=== PATIENT | female | born 1980 | race Caucasian/White ===

== ENCOUNTER → 2016-04-01 | Outpatient (CLI) | payer BC ==
[~2016-04-01] MED LIST: CITA40TA12 PO; FLX10 PO; NPR250 PO; PRENTAB26 PO; RXC5 PO
== END | disposition home or self-care (01) ==
LOC: C.LAB1850 07:46
PROVIDERS: ATTEND Specialist
DX: Z31.41 Encounter for fertility testing (principal)

== ENCOUNTER → 2016-04-07 | Outpatient (CLI) | payer BC | END | disposition home or self-care (01) | LOC: C.LAB1850 08:24 | PROVIDERS: ATTEND Specialist | DX: Z31.41 Encounter for fertility testing (principal) ==

== ENCOUNTER → 2016-04-09 | Outpatient (CLI) | payer BC | END | disposition home or self-care (01) | LOC: C.LAB1850 07:39 | PROVIDERS: ATTEND Specialist | DX: Z31.41 Encounter for fertility testing (principal) ==

== ENCOUNTER → 2016-04-30 | Outpatient (CLI) | payer BC | END | disposition home or self-care (01) | LOC: C.LAB1850 07:01 | PROVIDERS: ATTEND Specialist | DX: Z32.00 Encounter for pregnancy test, result unknown (principal) ==

== ENCOUNTER → 2016-05-03 | Outpatient (CLI) | payer BC | END | disposition home or self-care (01) | LOC: C.LAB1850 07:21 | PROVIDERS: ATTEND Specialist | DX: Z32.00 Encounter for pregnancy test, result unknown (principal) ==

== ENCOUNTER → 2016-05-05 | Outpatient (CLI) | payer BC | END | disposition home or self-care (01) | LOC: C.LAB1850 07:02 | PROVIDERS: ATTEND Specialist | DX: Z32.00 Encounter for pregnancy test, result unknown (principal) ==

== ENCOUNTER → 2016-06-07 | Outpatient (CLI) | payer BC ==
[2016-06-07 18:39] LABS: URINE APPEARANCE CLEAR (CLEAR); URINE BILIRUBIN NEG (NEG); URINE COLOR YELLOW; URINE NITRITE NEG (NEG); URINE PH 7.5 (4.5-7.5); URINE SPECIFIC GRAVITY 1.013 (1.000-1.030); UROBILINOGEN NEG (NEG)
[2016-06-07 18:49] LABS: MANUAL MICROSCOPIC REQUIRED? NO; REVIEW REQ? NO
== END | disposition home or self-care (01) ==
LOC: C.LABSPEC 17:54
PROVIDERS: ATTEND Obstetrics & Gynecology
DX: O09.519 Supervision of elderly primigravida, unspecified trimester (principal); Z3A.00 Weeks of gestation of pregnancy not specified

== ENCOUNTER → 2016-06-10 | Outpatient (CLI) | payer BC ==
[2016-06-10 18:01] LABS: BASO % 0.3 %; BASO ABS # 0.03 K/uL (0-0.2); COMPLETE YES; HEMATOCRIT 35.4 % (37-47); IG% 0.2 %; LYMPH % 25.6 %; LYMPH ABS # 2.45 K/uL (1.2-3.4); MEAN CELL VOLUME 86.6 fL (80-100); MEAN CORPUSCULAR HEMOGLOBIN 31.3 pg (25-34); MEAN CORPUSCULAR HGB CONC 36.2 g/dl (32-36); MONO % 6.1 %; NEUT % 65.8 %; PLATELET COUNT 231 K/uL (130-400); RED BLOOD COUNT 4.09 M/uL (4.2-5.4); WHITE BLOOD COUNT 9.56 K/uL (4.8-10.8)
== END ==
LOC: C.LAB1850 16:26
PROVIDERS: ATTEND Obstetrics & Gynecology
DX: O09.519 Supervision of elderly primigravida, unspecified trimester (principal); Z3A.00 Weeks of gestation of pregnancy not specified

== ENCOUNTER → 2016-06-10 | Outpatient (CLI) | payer BC ==
[2016-06-14 23:54] LABS: CHLAMYDIA TRACH RNA*** NOT DETECTED (NOT DETECTED); GC (NEIS GONORRHOEAE)RNA** NOT DETECTED (NOT DETECTED)
== END ==
LOC: C.LABSPEC 17:40
PROVIDERS: ATTEND Obstetrics & Gynecology
DX: O09.519 Supervision of elderly primigravida, unspecified trimester (principal); Z3A.00 Weeks of gestation of pregnancy not specified

== ENCOUNTER → 2016-07-21 | Outpatient (CLI) | payer BC ==
[2016-07-21 13:31] LABS: GTGD 50 Grams
== END | disposition home or self-care (01) ==
LOC: C.LAB1850 12:03
PROVIDERS: ATTEND Obstetrics & Gynecology
DX: O09.512 Supervision of elderly primigravida, second trimester (principal)

== ENCOUNTER → 2016-10-12 | Outpatient (CLI) | payer BC ==
[2016-10-12 17:20] LABS: HEMATOCRIT 36.8 % (37-47)
[2016-10-12 17:30] LABS: URINE APPEARANCE CLEAR (CLEAR); URINE BILIRUBIN NEG (NEG); URINE COLOR YELLOW; URINE NITRITE NEG (NEG); URINE PH 5.5 (4.5-7.5); URINE SPECIFIC GRAVITY 1.013 (1.000-1.030); UROBILINOGEN NEG (NEG)
[2016-10-12 17:50] LABS: MANUAL MICROSCOPIC REQUIRED? NO; REVIEW REQ? NO
[2016-10-12 18:20] LABS: GTGD 50 Grams
== END | disposition home or self-care (01) ==
LOC: C.LAB1850 16:18
PROVIDERS: ATTEND Obstetrics & Gynecology
DX: O09.513 Supervision of elderly primigravida, third trimester (principal); Z3A.00 Weeks of gestation of pregnancy not specified

== ENCOUNTER 2016-10-27 17:28 | Outpatient (CLI) | payer BC ==
[~2016-10-27] VITALS: Ht 175.3 cm; Wt 93.0 kg
[~2016-10-27 17:28] MED LIST changes: -PRENTAB26 PO
[2016-10-27 18:39] VITALS: Ht 175.3 cm; Wt 93.0 kg
[2016-10-27] MEDS ORDERED: PRENTAB26 PO (18:47)
== END 2016-10-27 18:17 | disposition home or self-care (01) ==
LOC: C.OPB 17:28 → C.LD 17:29 → C.OPB 18:17
PROVIDERS: ATTEND Obstetrics & Gynecology
DX: O36.8190 Decreased fetal movements, unspecified trimester, not applicable or unspecified (principal); Z3A.00 Weeks of gestation of pregnancy not specified

== ENCOUNTER 2016-10-31 03:36 | Outpatient (CLI) | payer BC ==
[~2016-10-31 03:36] MED LIST changes: -CITA40TA12 PO; -FLX10 PO; -NPR250 PO; +PRENTAB26 PO; -RXC5 PO
[2016-10-31 04:14] LABS: MANUAL MICROSCOPIC REQUIRED? NO; REVIEW REQ? NO; URINE APPEARANCE CLEAR (CLEAR); URINE BILIRUBIN NEG (NEG); URINE COLOR YELLOW; URINE NITRITE NEG (NEG); URINE SPECIFIC GRAVITY 1.008 (1.000-1.030); UROBILINOGEN NEG (NEG)
[2016-10-31 04:14] LABS: BASO % 0.2 %; BASO ABS # 0.02 K/uL (0-0.2); EOS % 1.8 %; HEMATOCRIT 35.4 % (37-47); IG% 0.4 %; LYMPH % 22.9 %; LYMPH ABS # 2.47 K/uL (1.2-3.4); MEAN CELL VOLUME 91.7 fL (80-100); MEAN CORPUSCULAR HEMOGLOBIN 32.6 pg (25-34); MEAN PLATELET VOLUME 10.3 fL (7.4-10.4); MONO % 5.8 %; NEUT % 68.9 %; PLATELET COUNT 130 K/uL (130-400); RED BLOOD COUNT 3.86 M/uL (4.2-5.4); WHITE BLOOD COUNT 10.79 K/uL (4.8-10.8)
[2016-10-31 04:17] LABS: COMPLETE YES; MEAN CORPUSCULAR HGB CONC 35.6 g/dl (32-36)
== END 2016-10-31 04:17 | disposition other institution (70) ==
LOC: C.OPB 03:36 → C.LD 03:41 → C.OPB 04:17
PROVIDERS: ATTEND Obstetrics & Gynecology
DX: O26.899 Other specified pregnancy related conditions, unspecified trimester (principal); R10.9 Unspecified abdominal pain; Z3A.00 Weeks of gestation of pregnancy not specified

== ENCOUNTER 2016-10-31 04:21 | Emergency (ER) | payer BC ==
[~2016-10-31] VITALS: Ht 175.3 cm; Wt 93.0 kg
[2016-10-31 04:23] VITALS: TEMP 36.6; Ht 175.3 cm; Wt 93.0 kg
[2016-10-31] MEDS ORDERED: MoRPHine SULFATE 4 MG/ML 1 ML CARP\\VIAL IV STA (04:40)
[2016-10-31] MEDS ORDERED: ONDANSETRON INJ 2 MG/ML 2 ML VIAL IV STA (04:40)
--- NOTE | 2016-10-31 06:38 | DIAGNOSTIC IMAGING REPORT ---
LIMITED (US) CLINICAL HISTORY: eval for abruption - left sided pain COMPARISON STUDY: No previous studies for comparison. TECHNIQUE: Transabdominal sonography of the pelvis was performed. FINDINGS: Single viable intrauterine gestation is noted. heart rate is normal at 132 bpm. Presentation is cephalic. Placenta is located posteriorly. There is no placental abnormality by sonography. Amniotic fluid index is normal at 15.9 cm. The cervix was not formally assessed on this exam. IMPRESSION: 1. Single viable intrauterine gestation with normal heart rate of 132 bpm. 2. No placental abnormality identified by sonography. Posteriorly located placenta. 3. Cephalic presentation. 4. Amniotic fluid index of 15.9 cm. Electronically signed by: Saad Montilla M.D. 10/31/2016 6:37 AM Dictated Date/Time: 10/31/2016 6:35 AM
--- NOTE | 2016-10-31 06:41 | DIAGNOSTIC IMAGING REPORT ---
RENAL ULTRASOUND CLINICAL HISTORY: Flank pain. . COMPARISON STUDY: None. TECHNIQUE: Sonography of the kidneys and the urinary bladder was performed. FINDINGS: The right kidney measures 10.9 x 5.5 x 5.8 cm and the left measures 11.2 x 5.6 x 5.5 cm. There is mild bilateral hydronephrosis, right greater than left. No renal calculi or masses are identified. Both ureteral jets are identified. Incidental note is made of mild splenomegaly. The spleen measures 13.5 cm. IMPRESSION: 1. Mild bilateral hydronephrosis, right greater than left. This may be due to a gravid uterus. Both ureteral jets identified. 2. Mild splenomegaly. Electronically signed by: Saad Montilla M.D. 10/31/2016 6:40 AM Dictated Date/Time: 10/31/2016 6:37 AM
--- NOTE | 2016-10-31 06:53 | EMERGENCY ROOM VISIT NOTE ---
History Report prepared by Berny: Bassam Ornelas Under the Supervision of: Dr. Allie Harris D.O. First contact with patient: 04:29 Chief Complaint: FLANK PAIN Stated Complaint: KIDNEY STONE,LEFT SIDE PAIN FROM L&D History of Present Illness The patient is a 36 year old female who presents to the Emergency Room with complaints of constant left flank pain beginning today. She is 30 weeks with her first . She presented to the ED today for her symptoms, and was taken to labor and delivery where it was confirmed that she was not in labor or having contractions. The patient had a urinalysis while in labor and delivery that showed blood present. She has no known personal or family history of kidney stones. She denies any new abdominal pain. The patient states that she has been able to feel the baby moving. Source of History: patient Onset: Today Position: other (left flank) Timing: constant Associated Symptoms: No abdominal pain (new) Review of Systems See HPI for pertinent positives & negatives. A total of 10 systems reviewed and were otherwise negative. Past Medical & Surgical Medical Problems: (1) 29 weeks gestation of (2) Decreased movement affecting management of in third trimester (3) Other specified complication, antepartum (4) Pain in scapula Family History No pertinent family history stated. Social History Smoking Status: Former Smoker Marital Status: Housing Status: lives with family Current/Historical Medications Scheduled Multivit/Min/Iron/Fol Ac/Pren ( Vitamin), 1 TAB PO DAILY Allergies Coded Allergies: No Known Allergies (Unverified , 10/27/16) Physical Exam Vital Signs Date Time Temp Pulse Resp B/P (MAP) Pulse Ox O2 Delivery O2 Flow Rate FiO2 10/31/16 06:58 78 18 111/65 98 10/31/16 05:48 63 20 92/41 97 Room Air 10/31/16 04:23 36.6 68 22 108/69 96 Room Air Physical Exam General: Appears very uncomfortable. Tachypneic on exam. HEENT: Head - normocephalic and atraumatic Pupils are equal, round, and reactive to light. Extraocular eye muscles are intact, and sclera are anicteric. Nose - moist nasal mucosa without discharge. Mouth - moist buccal mucosa. Oropharynx is nonerythematous and there is no tonsillar exudate or edema noted. Neck: Supple; no JVD, nuchal rigidity, cervical lymphadenopathy. Heart: Regular rate and rhythm. There is a normal S1 and S2 with no murmurs, clicks, or gallops appreciated. Lungs: Clear to auscultation bilaterally with no wheezes, rales, or rhonchi. Abdomen: Gravid. Fundus of the uterus above the umbilicus. Exquisite tenderness to palpation over the left side of the abdomen. There are no palpable pulsatile masses or hepatosplenomegaly. Extremities: No evidence of cyanosis, clubbing, or edema. There are easily palpable peripheral pulses. Skin: warm and dry with good turgor and no rashes. Medical Decision & Procedures ER Provider Diagnostic Interpretation: US results as stated below per my review and the radiologist's interpretation: LIMITED (US) FINDINGS: Single viable intrauterine gestation is noted. heart rate is normal at 132 bpm. Presentation is cephalic. Placenta is located posteriorly. There is no placental abnormality by sonography. Amniotic fluid index is normal at 15.9 cm. The cervix was not formally assessed on this exam. IMPRESSION: 1. Single viable intrauterine gestation with normal heart rate of 132 bpm. 2. No placental abnormality identified by sonography. Posteriorly located placenta. 3. Cephalic presentation. 4. Amniotic fluid index of 15.9 cm. Electronically signed by: Saad Montilla M.D. US RENAL results per [facility] and my review. US RENAL: Mild bilateral hydronephrosis which may be secondary to gravid uterus. No renal masses or calculi. Bilateral ureteral jet were visualized. The spleen is mildly enlarged measuring 13.5 cm. Medications Administered Medications (Trade) Dose Ordered Sig/Cary Route Start Time Stop Time Status Last Admin Dose Admin Morphine Sulfate (MoRPHine SULFATE INJ) 4 mg NOW STAT IV 10/31/16 04:40 10/31/16 04:41 DC 10/31/16 04:46 4 MG Ondansetron HCl (Zofran Inj) 4 mg NOW STAT IV 10/31/16 04:40 10/31/16 04:41 DC 10/31/16 04:45 4 MG Procedure Medications ordered: Morphine IV, Zofran IV. ED Course 0431: Past medical records reviewed. The patient was evaluated in room A11B. A complete history and physical exam was performed. An IV lock was initiated. The laboratory studies that were obtained while in labor and delivery were reviewed. 0440: Ordered Zofran Inj 4 mg IV, Morphine Sulfate 4 mg IV. She went for renal ultrasound and ultrasound. 0650: Upon reevaluation, the patient is resting comfortably. I discussed findings and results with her. She verbalized agreement of the treatment plan. The patient was discharged home. Medical Decision The patient is a 36 year old female who presents to the ED from labor & delivery with left flank pain. Differential diagnosis includes ureteral colic, pyelonephritis, placental abruption, and pre-term labor. Laboratory Studies: White blood cell count 10.7. Hemoglobin 12.6. Platelet count 130. Urine had trace blood with 5-10 red blood cells. This is a 36-year-old female patient who is 30 weeks and presenting with left flank pain. The patient was monitored on labor and delivery with no obvious signs of contractions. Urinalysis did reveal some hematuria and there was some concern that her left flank pain was secondary to a ureteral stone. Ultrasound shows hydronephrosis which is equal bilaterally and most likely secondary to the gravid uterus. No obvious stone could be identified. ultrasound was unremarkable. The patient was more comfortable after receiving the above IV medications. However, was concerned about the amount of pain the patient had experienced prior to this. I discussed the case with Dr. Barajas and we've agreed to send the patient home. If the pain would return, she should follow-up with him by phone or return here to the emergency department immediately. She is to avoid strenuous activity and keep herself well-hydrated. Consults Time Called: 0640 Consulting Physician: Dr. Karl MORRIS Returned Call: [phone] Discussed the patient's case. Dr. Barajas feels that the patient is safe for discharge, and he will see her in labor and delivery if her pain returns. Impression Primary Impression: Left flank pain Additional Impression: Third trimester Scribe Attestation The scribe's documentation has been prepared under my direction and personally reviewed by me in its entirety. I confirm that the note above accurately reflects all work, treatment, procedures, and medical decision making performed by me. Departure Information Dispostion Home / Self-Care Referrals Terri Oseguera PA-C (PCP) Forms HOME CARE DOCUMENTATION FORM, IMPORTANT VISIT INFORMATION Patient Instructions ED Flank Pain Uncertain Cause, My [facility] Additional Instructions Rest Keep yourself well-hydrated. Return to the ER or call OB if pain returns Problem Qualifiers
[2016-10-31 06:58] VITALS: BP 111/65; PULSE 78; O2SAT 98
== END 2016-10-31 06:59 | disposition home or self-care (01) ==
LOC: C.EDB 04:22 → C.EDA 06:59
DX: O99.89 Other specified diseases and conditions complicating pregnancy, childbirth and the puerperium (principal); R10.30 Lower abdominal pain, unspecified; Z3A.30 30 weeks gestation of pregnancy; Z87.891 Personal history of nicotine dependence

== ENCOUNTER → 2016-12-15 | Outpatient (CLI) | payer BC | END | disposition home or self-care (01) | LOC: C.LABSPEC 17:28 | PROVIDERS: ATTEND Obstetrics & Gynecology | DX: O09.513 Supervision of elderly primigravida, third trimester (principal); Z3A.00 Weeks of gestation of pregnancy not specified ==

== ENCOUNTER 2017-03-19 20:02 | Emergency (ER) | payer BC, OTHER ==
[~2017-03-19] VITALS: Ht 175.3 cm; Wt 81.8 kg
[2017-03-19 20:05] VITALS: TEMP 37.1; Ht 175.3 cm; Wt 81.8 kg
[2017-03-19] MEDS ORDERED: SODIUM CHLORIDE 0.9% 1000ML 1,000 ML IV STA (20:39)
[2017-03-19] MEDS ORDERED: ONDANSETRON INJ 2 MG/ML 2 ML VIAL IV STA (20:39)
[2017-03-19] MEDS ORDERED: KETOROLAC TROMETHAMINE 30 MG/ML VIAL IV STA (20:39)
[2017-03-19 21:01] LABS: BASO % 0.3 %; BASO ABS # 0.02 K/uL (0-0.2); EOS % 0.8 %; EOS ABS # 0.06 K/uL (0-0.5); HEMATOCRIT 40.9 % (37-47); HEMOGLOBIN 14.7 g/dL (12.0-16.0); IG# 0.01 K/uL (0.00-0.02); LYMPH % 12.9 %; LYMPH ABS # 1.03 K/uL (1.2-3.4); MEAN CELL VOLUME 89.1 fL (80-100); MEAN CORPUSCULAR HGB CONC 35.9 g/dl (32-36); MEAN PLATELET VOLUME 11.5 fL (7.4-10.4); MONO ABS # 0.48 K/uL (0.11-0.59); NEUT % 79.9 %; NEUT ABS # 6.37 K/uL (1.4-6.5); PLATELET COUNT 133 K/uL (130-400); RED CELL DISTRIBUTION WIDTH CV 12.9 % (11.5-14.5); RED CELL DISTRIBUTION WIDTH SD 41.5 fL (36.4-46.3); WHITE BLOOD COUNT 7.97 K/uL (4.8-10.8)
[2017-03-19 21:18] LABS: ALBUMIN 3.5 gm/dl (3.4-5.0); CALCIUM 8.7 mg/dl (8.5-10.1); CREATININE 0.84 mg/dl (0.60-1.20); POTASSIUM 3.5 mmol/L (3.5-5.1)
[2017-03-19 21:21] LABS: TOTAL PROTEIN 6.4 gm/dl (6.4-8.2)
[2017-03-19 21:27] LABS: INFLUENZA B ANTIGEN Neg for Influ B (NEG)
--- NOTE | 2017-03-19 22:02 | EMERGENCY ROOM VISIT NOTE ---
History Report prepared by Berny: Britt Rainey Under the Supervision of: Dr. Ricarda Tyson M.D. First contact with patient: 20:33 Chief Complaint: VOMITING Stated Complaint: VOMITING, ACHES, PAINS Nursing Triage Summary: pt reports started last night with NV, body aches and fever History of Present Illness The patient is a 36 year old female who presents to the Emergency Room with complaints of persistent vomiting that began at midnight. The patient states she is experiencing fevers and body aches, but denies any diarrhea. She notes that she went to [facility] earlier, noting that they suggested she comes to the Emergency Department for further evaluation. The patient denies taking any medications to relieve her symptoms. She notes that she did get her flu shot this year. Source of History: patient Onset: midnight Position: other (global) Symptom Intensity: persistent Quality: other (vomiting) Associated Symptoms: No diarrhea Review of Systems See HPI for pertinent positives & negatives. A total of 10 systems reviewed and were otherwise negative. Past Medical & Surgical Medical Problems: (1) 29 weeks gestation of (2) 39 weeks gestation of (3) Active labor at term (4) Decreased movement affecting management of in third trimester (5) Group beta Strep positive (6) Other specified complication, antepartum (7) Pain in scapula Family History Cancer Social History Smoking Status: Never Smoker Smokeless Tobacco Use: No Alcohol Use: none Drug Use: none Marital Status: Housing Status: lives with family Current/Historical Medications Scheduled Multivit/Min/Iron/Fol Ac/Pren ( Vitamin), 1 TAB PO DAILY Ondasetron Odt (Zofran Odt), 4 MG SL Q6H Allergies Coded Allergies: No Known Allergies (Unverified , 03/19/17) Physical Exam Vital Signs Date Time Temp Pulse Resp B/P (MAP) Pulse Ox O2 Delivery O2 Flow Rate FiO2 03/19/17 22:54 65 16 96/59 97 Room Air 03/19/17 21:32 70 03/19/17 21:30 74 16 106/71 98 Room Air 03/19/17 20:05 37.1 112 20 121/85 99 Room Air Physical Exam Vital signs reviewed. General: Generally well-appearing female, in some discomfort. HEENT: No scleral icterus, PERRLA, neck supple. Atraumatic. Cardiovascular: Regular rate and rhythm, no extra sounds. Pulmonary: Clear to auscultation bilaterally, normal work of breathing. Abdomen: Soft, nontender, nondistended, positive bowel sounds. Musculoskeletal: Atraumatic, no peripheral edema. Neurologic: Patient awake alert and oriented x 3, full strength in all 4 extremities. Cranial nerves 2 through 12 grossly intact. Skin: Warm, dry, no rash Medical Decision & Procedures Laboratory Results 03/19/17 20:52 Red Blood Count 4.59, Mean Corpuscular Volume 89.1, Mean Corpuscular Hemoglobin 32.0, Mean Corpuscular Hemoglobin Concent 35.9, Mean Platelet Volume 11.5, Neutrophils (%) (Auto) 79.9, Lymphocytes (%) (Auto) 12.9, Monocytes (%) (Auto) 6.0, Eosinophils (%) (Auto) 0.8, Basophils (%) (Auto) 0.3, Neutrophils # (Auto) 6.37, Lymphocytes # (Auto) 1.03, Monocytes # (Auto) 0.48, Eosinophils # (Auto) 0.06, Basophils # (Auto) 0.02 03/19/17 20:52 Test 03/19/17 20:45 03/19/17 20:52 03/19/17 21:50 Influenza Type A Antigen Neg for Influ A (NEG) Influenza Type B Antigen Neg for Influ B (NEG) White Blood Count 7.97 K/uL (4.8-10.8) Red Blood Count 4.59 M/uL (4.2-5.4) Hemoglobin 14.7 g/dL (12.0-16.0) Hematocrit 40.9 % (37-47) Mean Corpuscular Volume 89.1 fL (80-100) Mean Corpuscular Hemoglobin 32.0 pg (25-34) Mean Corpuscular Hemoglobin Concent 35.9 g/dl (32-36) Platelet Count 133 K/uL (130-400) Mean Platelet Volume 11.5 fL (7.4-10.4) Neutrophils (%) (Auto) 79.9 % Lymphocytes (%) (Auto) 12.9 % Monocytes (%) (Auto) 6.0 % Eosinophils (%) (Auto) 0.8 % Basophils (%) (Auto) 0.3 % Neutrophils # (Auto) 6.37 K/uL (1.4-6.5) Lymphocytes # (Auto) 1.03 K/uL (1.2-3.4) Monocytes # (Auto) 0.48 K/uL (0.11-0.59) Eosinophils # (Auto) 0.06 K/uL (0-0.5) Basophils # (Auto) 0.02 K/uL (0-0.2) RDW Standard Deviation 41.5 fL (36.4-46.3) RDW Coefficient of Variation 12.9 % (11.5-14.5) Immature Granulocyte % (Auto) 0.1 % Immature Granulocyte # (Auto) 0.01 K/uL (0.00-0.02) Anion Gap 13.0 mmol/L (3-11) Est Creatinine Clear Calc Drug Dose 106.9 ml/min Estimated GFR () 104.4 Estimated GFR (Non- 90.0 BUN/Creatinine Ratio 17.6 (10-20) Calcium Level 8.7 mg/dl (8.5-10.1) Total Bilirubin 2.4 mg/dl (0.2-1) Direct Bilirubin 0.3 mg/dl (0-0.2) Aspartate Amino Transf (AST/SGOT) 21 U/L (15-37) Alanine Aminotransferase (ALT/SGPT) 26 U/L (12-78) Alkaline Phosphatase 59 U/L (45-117) Total Protein 6.4 gm/dl (6.4-8.2) Albumin 3.5 gm/dl (3.4-5.0) Lipase 110 U/L (73-393) Urine Color DK YELLOW Urine Appearance CLEAR (CLEAR) Urine pH 5.5 (4.5-7.5) Urine Specific [place] 1.026 (1.000-1.030) Urine Protein NEG (NEG) Urine Glucose (UA) NEG (NEG) Urine Ketones 1+ (NEG) Urine Occult Blood NEG (NEG) Urine Nitrite NEG (NEG) Urine Bilirubin NEG (NEG) Urine Urobilinogen NEG (NEG) Urine Leukocyte Esterase TRACE (NEG) Urine WBC (Auto) 1-5 /hpf (0-5) Urine RBC (Auto) 0-4 /hpf (0-4) Urine Hyaline Casts (Auto) 1-5 /lpf (0-5) Urine Epithelial Cells (Auto) >30 /lpf (0-5) Urine Bacteria (Auto) NEG (NEG) Laboratory results per my review. Medications Administered Medications (Trade) Dose Ordered Sig/Cary Route Start Time Stop Time Status Last Admin Dose Admin Sodium Chloride 1,000 ml @ 999 mls/hr Q1H1M STAT IV 03/19/17 20:39 03/19/17 21:39 DC 03/19/17 21:03 999 MLS/HR Ondansetron HCl (Zofran Inj) 4 mg NOW STAT IV 03/19/17 20:39 03/19/17 20:42 DC 03/19/17 21:03 4 MG Ketorolac Tromethamine (Toradol Inj) 30 mg NOW STAT IV 03/19/17 20:39 03/19/17 20:42 DC 03/19/17 21:06 30 MG Ondansetron HCl (ZOFRAN ODT 4MG Home Pack) 1 homepack UD ONCE PO 03/19/17 23:00 03/19/17 23:01 DC 03/19/17 23:00 1 HOMEPACK ED Course 2038: Past medical records reviewed. The patient was evaluated in room C6. A complete history and physical examination was performed. 2038: Ordered Sodium Chloride 1000ml @ 999 mls/hr IV, Zofran Inj 4mg IV, and Toradol Inj 30mg IV. 2140: I reevaluated the patient, who was resting comfortably. 2251: Upon reevaluation, the patient appeared to have improvement of her symptoms. I discussed findings with her. She verbalized agreement of the treatment plan. The patient was discharged home. Medical Decision Differential diagnosis: Etiologies such as gastroenteritis, food borne illness, infections, appendicitis , diverticulitis, inflammatory bowel disease, obstruction, GI bleed, biliary pathology, as well as others were entertained. This patient was evaluated and appeared to be in some discomfort. IV access was obtained and laboratory work was drawn. The patient was hydrated with normal saline solution. Given IV Toradol and Zofran for her discomforts. Work reveals a mildly elevated bilirubin at 2.5. This is likely secondary to her vomiting. Patient began to have significant improvement in her symptoms. On my reevaluation, she was sleeping. She stated her symptoms have improved. I suspect this is a gastroenteritis, likely of viral origin. Patient was discharged with Zofran ODT. She will continue diligent handwashing to avoid spreading infection to her . She will follow-up with her physician for reevaluation and return to the ER for worsening of symptoms or any medical concerns. Medication Reconcilliation Current Medication List: was personally reviewed by me Blood Pressure Screening Patient's blood pressure: Normal blood pressure Impression Primary Impression: Vomiting Additional Impression: Diarrhea Scribe Attestation The scribe's documentation has been prepared under my direction and personally reviewed by me in its entirety. I confirm that the note above accurately reflects all work, treatment, procedures, and medical decision making performed by me. Departure Information Dispostion Home / Self-Care Prescriptions Ondasetron Odt (ZOFRAN ODT) 4 Mg Tab 4 MG SL Q6H for Nausea, #10 TAB Prov: Ricarda Tyson M.D. 03/19/17 Referrals Terri Oseguera PA-C (PCP) Forms HOME CARE DOCUMENTATION FORM, IMPORTANT VISIT INFORMATION Patient Instructions My [facility] Additional Instructions Diagnosis: Vomiting, diarrhea Tylenol 650 mg every 6 hours as needed for pain or fever. Zofran 4 mg ODT every 6 hours as needed for nausea. Please drink plenty of clear fluids. Advance her diet slowly as tolerated. Maintain strict hand washing and cleaning the bathroom as frequently to avoid further illness in the home. Follow-up with your physician this week for reevaluation. Return to the ER for worsening of symptoms or any medical concerns. Problem Qualifiers
[2017-03-19] MEDS ORDERED: ONDA4TAB10 SL (22:46)
[2017-03-19 22:54] VITALS: BP 96/59; PULSE 65; O2SAT 97
[2017-03-19] MEDS ORDERED: ONDANSETRON HOME PACK 4MG OD TAB PO ONE (23:00)
== END 2017-03-19 23:01 | disposition home or self-care (01) ==
LOC: C.EDB 20:03 → C.EDC 23:01
DX: R11.10 Vomiting, unspecified (principal); R19.7 Diarrhea, unspecified; Z80.9 Family history of malignant neoplasm, unspecified